=== PATIENT | male | born 1985 | race Caucasian/White ===

== ENCOUNTER 2024-05-06 15:03 | Emergency (ER) | payer OTHER, BC, SELFPAY ==
[2024-05-06 15:17] VITALS: BP 120/80; PULSE 71; RESP 16; TEMP 36.6; O2SAT 100
--- NOTE | 2024-05-06 16:11 | ED.HA ---
HPI - Headache General Chief Complaint: Headache Stated Complaint: migraine Time Seen by Provider: 05/06/24 16:00 Focused HPI: Patient is a 39-year-old male who presents to the ER with a migraine headache. He reports he has a history of headaches. This particular headache started yesterday around 4:00 p.m.. This morning he went to urgent care and makes him Toradol IM but it did not provide him with any relief. Patient sees a [facility]ist at [facility] for his [facility]raines and reports his head CT scan within the last year. He is in agreement but he does not know any more imaging at this time. Patient endorses nausea but denies any vomiting. He is able to keep down p.o. intake. Patient denies any recent fevers, other signs/symptoms of infection/illness, congestion. GENERAL: Well-appearing, well-nourished, and in no acute distress. HEAD: Normocephalic, atraumatic. CHEST: Clear to auscultation. ?No respiratory distress. HEART: Regular rate and rhythm.? NEURO: ?Alert and oriented x3. Patient screened in triage and initial orders placed.? ?Additional care and disposition to be based upon?diagnostic testing and treatment. Course Vital Signs Vital signs: Vital Signs Temperature 36.6 C 05/06/24 15:17 Pulse Rate 71 05/06/24 15:17 Respiratory Rate 16 05/06/24 15:17 Blood Pressure 120/80 05/06/24 15:17 Pulse Oximetry 100 05/06/24 15:17 Oxygen Delivery Room Air 05/06/24 15:17 Temperature 36.6 C 05/06/24 15:17 Pulse Rate 71 05/06/24 15:17 Respiratory Rate 16 05/06/24 15:17 Blood Pressure 120/80 05/06/24 15:17 Pulse Oximetry 100 05/06/24 15:17 Oxygen Delivery Room Air 05/06/24 15:17 Discharge Plan Discharge Patient Language: Polish Follow-up/Referrals: PHYSICIAN,SOLUTIONS DEVELOPMENT ANALYST [Primary Care Provider] -
[2024-05-06] MEDS: Please add drug allergy info to patient profile. 1 EACH XX (16:26)
[2024-05-06] MEDS: METOCLOPRAMIDE HCL INJ 10 MG/2 ML VIAL IM (16:27)
[2024-05-06] MEDS: dexAMETHasone SOD PHOS INJ 10 MG/ML 1 ML VIAL IM (16:27)
[2024-05-06] MEDS: ACETAMINOPHEN 500 MG TABLET 1000 MG PO (17:44)
[2024-05-06] MEDS: KETOROLAC 30 MG/ML VIAL (*BKC) IM (17:45)
[2024-05-06] MEDS: HALOPERIDOL LACTATE 5 MG/ML VIAL IM (17:47)
--- NOTE | 2024-05-06 18:10 | ED.GENADULT ---
HPI - General Adult General Chief complaint: Headache Stated complaint: migraine Time Seen by Provider: 05/06/24 16:00 History of Present Illness HPI narrative: This is a 31-year-old male history of chronic migraines presenting with his typical migraine. He says it started yesterday while driving. Pain is located above his left eye and in the frontal region which is normal for him. Typically takes sumatriptan with relief but that did not work today. He then went to her urgent care and received a shot of Toradol which was also ineffective. Patient denies fevers chills nausea or vomiting. No neurologic deficits. No trauma. Related Data Allergies Allergy/AdvReac Type Severity Reaction Status Date / Time diphenhydramine (From Allergy Severe Agitated Verified 05/06/24 16:26 Benadryl) [facility] Past Medical History Medical History Hx of migraines Exam Narrative: APPEARANCE: No apparent distress. Head: atraumatic. EYES: EOMI, FRANCES NOSE: Atraumatic NECK: Trachea midline RESPIRATORY: No increased rate of breathing CARDIOVASCULAR: RRR, ABDOMINAL: Non-distended MUSCULOSKELETAl: No obvious deformities NEURO: Alert. Cranial nerves 2-12 grossly intact. Sensation light touch, motor function cerebellar function intact for 4 extremities. Gait exam was normal. SKIN:: Warm, dry. Normal color PSYCHIATRIC: Normal affect Course Vital Signs Vital signs: Vital Signs Temperature 97.8 F 05/06/24 15:17 Pulse Rate 71 05/06/24 15:17 Respiratory Rate 16 05/06/24 15:17 Blood Pressure 120/80 05/06/24 15:17 Pulse Oximetry 100 05/06/24 15:17 Oxygen Delivery Room Air 05/06/24 15:17 Temperature 97.8 F 05/06/24 15:17 Pulse Rate 71 05/06/24 15:17 Respiratory Rate 16 05/06/24 15:17 Blood Pressure 120/80 05/06/24 15:17 Pulse Oximetry 100 05/06/24 15:17 Oxygen Delivery Room Air 05/06/24 15:17 Medical Decision Making MDM Narrative Medical decision making narrative: -Course: this is a 39-year-old male history of migraines presenting with his typical migraine. patient was given Reglan, Toradol Tylenol, Haldol, and dexamethasone. on re-evaluation patient was sleeping in his room. When I woke him is that he had some mild improvement. He is comfortable going home getting a full night's sleep. Discharged with return precautions -DDX includes but is not limited to: Migraine, tension headache, ocular migraine, cluster headache -Co-morbidities complicating care: migraines Vital Signs Vital Signs: Vital Signs Temperature 97.8 F 05/06/24 15:17 Pulse Rate 71 05/06/24 15:17 Respiratory Rate 16 05/06/24 15:17 Blood Pressure 120/80 05/06/24 15:17 Pulse Oximetry 100 05/06/24 15:17 Oxygen Delivery Room Air 05/06/24 15:17 Temperature 97.8 F 05/06/24 15:17 Pulse Rate 71 05/06/24 15:17 Respiratory Rate 16 05/06/24 15:17 Blood Pressure 120/80 05/06/24 15:17 Pulse Oximetry 100 05/06/24 15:17 Oxygen Delivery Room Air 05/06/24 15:17 Discharge Plan Discharge Clinical Impression: Hx of migraines Patient Disposition: Home, Self-Care Condition: Stable Instructions: Antibiotic Form, Acute Headache (DC) Patient Language: Iraqi Follow-up/Referrals: PHYSICIAN,[employer] WAITRESS/WAITER [Primary Care Provider] -
== END 2024-05-06 18:57 | disposition home or self-care (01) ==
PROVIDERS: Emergency Provider Emergency Medicine
DX: G43.909 Migraine, unspecified, not intractable, without status migrainosus (principal)
CPT/HCPCS: 96372; 99284; A9270; J1100; J1630; J1885; J2765

== ENCOUNTER 2024-09-22 14:12 | Emergency (ER) | payer BC, OTHER, SELFPAY ==
[2024-09-22 14:29] VITALS: BP 123/77; PULSE 74; RESP 18; TEMP 36.7; O2SAT 100
[2024-09-22] MEDS: dexAMETHasone SOD PHOS INJ 10 MG/ML 1 ML VIAL IM (15:13)
[2024-09-22] MEDS: KETOROLAC (*BKC) 60 MG/2 ML VIAL IM (15:14)
--- NOTE | 2024-09-22 18:13 | ED_ITS ---
HPI - Headache General Chief Complaint: Headache Stated Complaint: Migraine Time Seen by Provider: 09/22/24 15:05 Source: patient and RN notes reviewed Mode of arrival: ambulatory Limitations: no limitations History of Present Illness HPI Narrative: 39-year-old male presents to the [facility] complaining of a migraine since 3:00 a.m. this morning. Patient has a history of migraine with aura. Patient tried his intranasal Imitrex with no relief. Patient later then used is any tract injection with no relief. Patient denies any vision changes, slurred speech, focal weakness, dizziness, chest pain, or shortness of breath. Patient has taken Tylenol for the pain with no relief. Patient reports photophobia, congestion, and nausea. Related Data Home Medications ?Medication ?Instructions ?Recorded ?Confirmed ?Last Taken ?Type levothyroxine 75 mcg tablet mcg 09/22/24 Unknown History omeprazole 40 mg capsule,delayed mg 09/22/24 Unknown History release Allergies Allergy/AdvReac Type Severity Reaction Status Date / Time diphenhydramine (From Allergy Severe Agitated Verified 09/22/24 14:18 Benadryl) Review of Systems Review of Systems: CONSTITUTIONAL: Denies fever, chills, or sweats. EYES: Denies visual changes, redness, or discharge. Positive for photophobia. ENT: Denies rhinorrhea, sore throat, or otalgia. Positive for congestion. CARDIOVASCULAR: Denies chest pain, palpitations, or edema. RESPIRATORY: Denies cough or dyspnea. GASTROINTESTINAL: Denies abdominal pain, vomiting, or diarrhea. Positive for nausea. GENITOURINARY: Denies dysuria or hematuria. SKIN: Denies rash or itching. MUSCULOSKELETAL: Denies back pain, joint pain, or myalgia. NEUROLOGIC: Positive for headache. Negative for Numbness, or weakness. PSYCHIATRIC: Denies anxiety or depression. All other systems reviewed are negative, except as documented in HPI. PMFSH Past Medical History Medical History Hx of migraines Comments At the time of my signature, I reviewed and agree with the nursing past medical, surgical, social, and family history. There is no relevant family history pertinent to the patient complaint. Exam Narrative: GENERAL: This is a well-nourished, well-developed adult, in no apparent distress. They are non ill-appearing, nontoxic appearing. HEAD: normocephalic, atraumatic. EYES: Sclera clear/white. Vision is grossly intact. Conjunctiva normal bilaterally. Extraocular movements intact. Pupils PERRLA EARS: External ears normal, auditory canals clear and without drainage, TMs without erythema or perforation. Hearing grossly intact. NOSE: External nose normal with no obvious nasal discharge, nasal turbinates erythematous bilaterally with rhinorrhea. THROAT: Mucous membranes moist, posterior pharynx without erythema or exudate. Uvula is midline. NECK: Neck supple, non-tender without lymphadenopathy, masses or thyromegaly. CARDIOVASCULAR: Regular rate and rhythm without murmurs, gallops, or rubs. RESPIRATORY: Clear to auscultation. Breath sounds equal bilaterally. No wheezes, rales, or rhonchi. SKIN: warm, Dry, intact with no suspicious lesions or rash, good texture and turgor. NEURO: awake, alert, and oriented to person, place and time. There were no obvious focal neurologic abnormalities. EXTREMITIES: No joint tenderness, effusion, or edema noted. BACK: Nontender without deformity. No CVA tenderness. Course Course Emergency Course: Portions of this record may have been created with voice recognition software Level of Care: Express Care Visit Vital Signs Vital signs: Vital Signs Temperature 98.0 F 09/22/24 14: Pulse Rate 74 09/22/24 14: Respiratory Rate 18 09/22/24 14:29 Blood Pressure 123/77 09/22/24 14:29 Pulse Oximetry 100 09/22/24 14:29 Oxygen Delivery Room Air 09/22/24 14:29 Temperature 98.0 F 09/22/24 14:29 Pulse Rate 74 09/22/24 14:29 Respiratory Rate 18 09/22/24 14:29 Blood Pressure 123/77 09/22/24 14:29 Pulse Oximetry 100 09/22/24 14:29 Oxygen Delivery Room Air 09/22/24 14:29 Reviewed MDM - Headache MDM Narrative Medical decision making narrative: Patient has symptoms consistent with a migraine headache. She was given a shot of Toradol and a shot of dexamethasone. Patient says his headache has improved is okay with discharge. Patient does have congestion which might be related to a rhino virus or other upper respiratory infection. Discussed physical exam findings. Advised supportive measures and signs/symptoms to go to the ER. Pt is appropriate for outpt treatment and f/u. Differential Diagnosis Differential diagnosis: Likely migraine, tension headache, headache and other (Upper respiratory infection) Critical Care Time Critical Care Time Critical Care Time: No Discharge Plan Discharge Clinical Impression: Migraine Qualifiers: Migraine type: unspecified Status migrainosus presence: without status migrainosus Intractability: intractable Qualified Code(s): G43.919 - Migraine, unspecified, intractable, without status migrainosus Patient Disposition: Home Condition: Stable Instructions: Migraine Headache (ED) Additional Instructions: You were given a shot of dexamethasone and Toradol today. Please follow-up with your primary care provider in 3-5 days. If your headache worsens, you develop blurry vision, or you cannot get it under control please go to the ER for further evaluation. Patient Language: Tamaz[place] Prescriptions: No Action omeprazole 40 mg capsule,delayed release(DR/EC) levothyroxine 75 mcg tablet Follow-up/Referrals: UNKNOWN,DOCTOR [Primary Care Provider] - Time of Disposition: 15:07
== END 2024-09-22 15:28 | disposition home or self-care (01) ==
DX: G43.919 Migraine, unspecified, intractable, without status migrainosus (principal); Z79.899 Other long term (current) drug therapy
CPT/HCPCS: 96372; 99214; G0463; J1100; J1885

== ENCOUNTER 2024-10-31 09:34 | Emergency (ER) | payer BC, SELFPAY ==
--- NOTE | 2024-10-31 09:40 | ED_ITS ---
HPI - Headache General Chief Complaint: Headache Stated Complaint: Migraine Time Seen by Provider: 10/31/24 09:35 Source: patient Mode of arrival: ambulatory Limitations: no limitations History of Present Illness HPI Narrative: Patient is a 39-year-old male who presents with headache located behind right occipital and has right. This is the 3rd time patient has been seen for migraines in the past 6 months at [facility]. [facility]. This episode started at 9 pm took Imitrex spray. Woke up at 6 am with same symptoms and used spray again. Is using an icepack on forehead. States when the weather changes and prompts migraine symptoms. Patient received Toradol and dexamethasone 5/5 and reports that helps. He gets botox treatments which have helped take his frequency from daily to every 3-4 days. Reports photosensitivity but denies any numbness, tingling, weakness to extremities or vision changes. Related Data Home Medications ?Medication ?Instructions ?Recorded ?Confirmed ?Last Taken ?Type levothyroxine 75 mcg tablet mcg 09/22/24 10/31/24 History omeprazole 40 mg capsule,delayed mg 09/22/24 Unknown History release sumatriptan 20 mg/actuation nasal mg intranasal 10/31/24 Unknown History spray Allergies Allergy/AdvReac Type Severity Reaction Status Date / Time diphenhydramine (From Allergy Severe Agitated Verified 10/31/24 09:43 Benadryl) Review of Systems Review of Systems: All systems reviewed & are unremarkable except as noted in HPI and below Constitutional: Constitutional: Denies body ache(s), Denies chills, Denies fatigue, Denies fever(s), Reports headache(s), Denies malaise and Denies weakness Eyes: Eyes: Denies blurry vision, Denies irritation, Denies loss of vision and Reports photophobia ENT: Denies otalgia, Reports headache(s), Denies nasal discharge, Denies sinus pain and Denies sore throat Cardiovascular: Cardiovascular: Denies chest pain, Denies irregular heart rhythm and Denies dyspnea Respiratory: Respiratory: Denies dyspnea Gastrointestinal: Gastrointestinal: Denies abdominal pain, Denies melena, Den ies hematochezia, Denies diarrhea, Denies nausea and Denies vomiting Musculoskeletal: Musculoskeletal: Denies back pain, Denies myalgias and Denies arthralgias Integumentary/Breasts: Skin/Breast: Denies pruritus and Denies rash Neurologic: Reports headache(s), Denies loss of vision and Denies weakness Psychiatric: Psychiatric: Reports no additional psychiatric complaints Endocrine: Endocrine: Denies fatigue PMFSH Past Medical History Medical History Hx of migraines Comments At time of signature, agree with nursing past medical, surgical, social and family history. There is no relevant family history pertinent to the presenting complaint. Exam Const: General: cooperative, healthy appearing, comfortable, no acute distress and well nourished Nutritional Appearance: well nourished Orientation/consciousness: patient oriented x3 Limitations: no limitations HENMT: Head: normal to inspection, normocephalic and atraumatic Ears: hearing grossly normal bilaterally and external ears normal Face/Nose/Sinus: Normal external nose present, normal facial exam and face symmetric Face and sinus: normal facial exam and face symmetric Mouth: Yes lip normal Eyes: General: appearance normal, both eyes and all related structures Alignment and Position: alignment normal and position normal Periorbital: periorbital findings normal Eyelids: eyelids normal Pupils: Equal, round and reactive pupils present EOM: EOMs intact bilaterally Neck: Neck: normal visual inspection, full ROM and supple Chest: Chest palpation & inspection: normal inspection of the chest Resp: Effort & Inspection: normal respiratory effort and able to speak in complete sentences Auscultation: clear to auscultation bilaterally Cardio: Rate: regular rate Rhythm: regular rhythm Heart sounds: S1 normal heart sound present and S2 normal heart sound present GI: Inspection: normal to inspection Skin: General skin exam: normal color and no rashes or lesions noted Neuro: General: patient oriented x3 and moves all extremities Cranial nerves: Yes Equal, round and reactive pupils present Cognition (Neuro): normal cognition Speech: normal speech Gait exam (Neuro): Normal gait present Motor exam (neuro): 5/5 motor strength present throughout, Normal motor muscle tone present throughout and Motor abnormalities not present Sensory Exam: normal sensation Extrem: General: normal to inspection, full ROM and no edema Psych: Appearance: grossly normal and well kempt Mental Status: mental status grossly normal Speech and movement: Normal speech and movement present Affect: normal affect Attitude: cooperative Thought process: Normal thought process present Course Course Emergency Course: Patient is aware of diagnosis, understands and agrees to treatment plan. Anticipatory guidance given. Patient agrees to follow-up as directed and is aware of reasons to seek care at the emergency department. Portions of this record may have been created with voice recognition software Level of Care: Express Care Visit Vital Signs Vital signs: Reviewed MDM - Headache MDM Narrative Medical decision making narrative: Patient was given Toradol and dexamethasone injection. After 15 minutes patient declines any change in symptoms but states that usually does take awhile. discharging patient home Pt well hydrated appearing, in no respiratory distress, hemodynamically stable. Recommend supportive care. The patient is stable at time of discharge the clinical impression was discussed and the patient was given the opportunity to ask questions, which were addressed as completely as possible given the information available at present. Anticipatory guidance and return to care precautions were discussed and the importance of primary care follow-up was stressed and encouraged. The patient voiced understanding of the plan, indications to return, and the need for follow-up. Exam findings show no acute concerns or changes Patient is appropriate for outpatient treatment and follow-up. Differential Diagnosis Differential diagnosis: Likely migraine, tension headache, subarachnoid hemorrhage (less likely), headache and sinusitis Medical Records Attestation: I reviewed the patient's medical records. Discharge Plan Discharge Clinical Impression: Hx of migraines Migraine Qualifiers: Migraine type: unspecified Status migrainosus presence: with status migrainosus Intractability: intractable Qualified Code(s): G43.911 - Migraine, unspecified, intractable, with status migrainosus Patient Disposition: Home Condition: Stable Instructions: Migraine Headache (ED) Additional Instructions: Your given Toradol and dexamethasone today. Keep appointment with neurologist on the . For pain, you may take: Tylenol 650-1000mg by mouth every 4-6 hours. Do not exceed 4000mg in 24 hours. Advil (Ibuprofen) 600 mg by mouth every 6 hours. Do not exceed 2400mg in 24 hours. Follow-up with PCP as needed or if you have worsening headache, vision changes, dizziness my persistent vomiting go to the emergency department. Patient Language: [place]ese Prescriptions: No Action sumatriptan 20 mg/actuation spray,non-aerosol INTRANASAL omeprazole 40 mg capsule,delayed release(DR/EC) levothyroxine 75 mcg tablet Follow-up/Referrals: Artur Lorenz MD [Physician] - 3 Days (Establish care) Stand Alone Forms: Work/School Release IP Time of Disposition: 10:22
[2024-10-31 09:49] VITALS: BP 126/83; PULSE 74; RESP 16; TEMP 36.4; O2SAT 97
[2024-10-31] MEDS: dexAMETHasone SOD PHOS INJ 10 MG/ML 1 ML VIAL IM (10:11)
[2024-10-31] MEDS: KETOROLAC (*BKC) 60 MG/2 ML VIAL IM (10:13)
== END 2024-10-31 10:23 | disposition home or self-care (01) ==
PROVIDERS: Emergency Provider Nurse Practitioner Family
DX: G43.911 Migraine, unspecified, intractable, with status migrainosus (principal)
CPT/HCPCS: 96372; 99214; G0463; J1100; J1885